=== PATIENT | male | born 2005 | race Hispanic/Latino ===

== ENCOUNTER 2023-01-22 11:03 | Emergency (ER) | payer OTHER ==
[~2023-01-22] VITALS: Ht 172.7 cm; Wt 91.3 kg
[2023-01-22] MEDS ORDERED: SODIUM CHLORIDE 0.9% 1000ML 1,000 ML IV STA (11:43)
[2023-01-22] MEDS ORDERED: DICYCLOMINE HCL 20 MG/2 ML VIAL IM ONE ×2 (11:45→11:49)
[2023-01-22] MEDS ORDERED: ONDANSETRON HCL INJ 2MG/ML 2ML 2 MG/ML VIAL ONE (11:49)
[2023-01-22] MEDS ORDERED: SODIUM CHLORIDE 0.9% 1000ML 1,000 ML ONE (11:49)
[2023-01-22] MEDS ORDERED: ONDANSETRON HCL INJ 2MG/ML 2ML 2 MG/ML VIAL IV STA (11:54)
[2023-01-22] MEDS ORDERED: PROMETHAZINE 25MG/ NS 50ML (IV) IV STA (12:38)
[2023-01-22] MEDS ORDERED: PROMETHAZINE HCL (IM) 25 MG/ML VIAL IM ONE (12:49)
[2023-01-22] MEDS ORDERED: IOPAMIDOL 370 MG/ML 100 ML INFUS..BTL INJ ONE (13:26)
[2023-01-22] MEDS ORDERED: Morphine 4mg INJECTION 4 MG/ML INJ IV PRN (15:15)
[2023-01-22] MEDS ORDERED: SODIUM CHLORIDE 0.9% 1000ML 1,000 ML IV SCH (15:15)
[2023-01-22] MEDS ORDERED: ONDANSETRON HCL INJ 2MG/ML 2ML 2 MG/ML VIAL IV PRN (15:15)
[2023-01-22] MEDS ORDERED: PROMETHAZINE HC25 M1 PO (15:40)
[2023-01-22] MEDS ORDERED: AUGMENTIN 500-1 EACH PO (15:46)
== END 2023-01-22 15:54 | disposition home or self-care (01) ==
LOC: FSED 11:13 → UNDOADMOB 15:07 → ERHOLD 15:07
DX: R10.84 Generalized abdominal pain (principal); I88.0 Nonspecific mesenteric lymphadenitis; R11.2 Nausea with vomiting, unspecified; Z20.822 Contact with and (suspected) exposure to COVID-19
CPT/HCPCS: 74177; 80048; 80076; 81003; 85025; 96372; 96374; 99284; J0500; J2405; J2550; J7030; Q9967; U0002

== ENCOUNTER 2023-02-03 11:24 | Emergency (ER) | payer OTHER ==
[~2023-02-03 11:24] MED LIST: AUGMENTIN 500-1 EACH PO; PROMETHAZINE HC25 M1 PO
[2023-02-03 11:35] VITALS: O2SAT 98
== END 2023-02-03 11:47 | disposition home or self-care (01) ==
LOC: FSED 11:31
DX: Z00.00 Encounter for general adult medical examination without abnormal findings (principal)
CPT/HCPCS: 99282